=== PATIENT | female | born 2000 | race Caucasian/White ===

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

== ENCOUNTER 2022-07-18 09:49 | Emergency (ER) | payer OTHER ==
[2022-07-18 10:39] LABS: RAPID STREP SCREEN POSITIVE (Negative)
--- NOTE | 2022-07-18 11:17 | ED Physician Documentation ---
PD HPI HEENT - Stated complaint Stated Complaint: THROAT PX - Chief complaint Chief Complaint: Heent - History obtained from History obtained from: Patient - Additional information Additional information: Patient is a 22-year-old female with no significant past medical history presenting for evaluation of sore throat that started this morning. She denies fever. She has had 1 previous episode of strep pharyngitis that she can recall. She denies any known sick contacts. She denies difficulty swallowing or breathing, nausea or vomiting.She has not taken anything yet for her symptoms this morning. 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 : None HEENT: None Psych: None Musculoskeletal: None Derm: None - Past Surgical History Past Surgical History: No - Present Medications Home Medications: Ambulatory Orders Medication Instructions Recorded Confirmed Phenazopyridine HCl [Pyridium] 100 mg PO TID PRN #15 tablet 11/26/21 cephALEXin [Keflex] 500 mg PO TID 5 Days #15 cap 11/26/21 Amoxicillin 500 mg PO BID 10 Days #20 cap 07/18/22 - Allergies Allergies/Adverse Reactions: Allergies Allergy/AdvReac Type Severity Reaction Status Date / Time No Known Drug Allergies Allergy Verified 07/18/22 10:12 - Social History Does the pt smoke?: No Smoking Status: Never smoker Does the pt drink ETOH?: No Does the pt have substance abuse?: No - Immunizations Immunizations are current?: Yes - POLST Patient has POLST: No PD ED PE NORMAL - General General: Alert and oriented X 3, No acute distress, Well developed/nourished - HEENT HEENT: Atraumatic, Moist mucous membranes, Pharynx benign (Mild posterior pharyngeal erythema, no oral swelling or exudate; Normal speech) - Neck Neck: Supple, no meningeal sign - Cardiac Cardiac: RRR - Respiratory Respiratory: No respiratory distress - Derm Derm: Warm and dry - Extremities Extremities: No edema - Neuro Neuro: Normal speech Results - Vitals Vitals: Vital Signs - 24 hr 07/18/22 07/18/22 10:09 11:23 Temperature 36.5 C 36.4 C L Heart Rate 68 80 Respiratory 16 16 Rate Blood Pressure 112/84 H 108/72 O2 Saturation 99 98 Oxygen O2 Source Room air - Labs Labs: Laboratory Tests 07/18/22 10:15 Group A Strep Rapid POSITIVE H PD MEDICAL DECISION MAKING - ED course Complexity details: reviewed results ED course: Patient with sore throat x1 day. A strep test is positive. Patient started on antibiotics. No signs of peritonsillar abscess or oral swelling.Patient counseled on concerning symptoms to return for. Departure - Departure Disposition: 01 Home, Self Care Clinical Impression: Strep pharyngitis Condition: Stable Instructions: ED Strep Pharyngitis Conf Prescriptions: Amoxicillin 500 mg PO BID 10 Days #20 cap Comments: You have tested positive for strep. I sent a prescription for antibiotics to the [facility] pharmacy on [facility]. Please make sure to complete the course of the antibiotics. Please stay hydrated and use ibuprofen or acetaminophen as needed for fevers or pains.If you have any worsening symptoms please return to the ER. Discharge Date/Time: 07/18/22 11:24
[2022-07-18 11:24] VITALS: BP 108/72
== END 2022-07-18 11:24 | disposition home or self-care (01) ==
LOC: ED 09:49
DX: J02.0 Streptococcal pharyngitis (principal); B95.5 Unspecified streptococcus as the cause of diseases classified elsewhere
CPT/HCPCS: 87430; 99282; 99283

== ENCOUNTER 2023-11-27 09:00 | Outpatient (CLI) | payer OTHER | END 2023-11-27 09:15 | disposition home or self-care (01) | LOC: LAB.N 09:00 | PROVIDERS: ATTEND Physician Assistant Medical | DX: J02.9 Acute pharyngitis, unspecified (principal) | CPT/HCPCS: 87070 ==